=== PATIENT | female | born 1970 | race American Indian/Alaskan Native ===

== ENCOUNTER 2021-04-08 01:15 | Inpatient (IN) | payer SELFPAY ==
[2021-04-08] MEDS ORDERED: ACETAMINOPHEN 500 MG TAB PO ONE (03:08)
--- NOTE | 2021-04-08 04:02 | XRay Report ---
CHEST 2 VIEWS INDICATION / CLINICAL INFORMATION: sob and chest pain. FINDINGS: SUPPORT DEVICES: None. HEART / MEDIASTINUM: No significant abnormality. LUNGS / PLEURA: Severe bilateral airspace pneumonia, lower lobe predominant. No significant pleural e ffusion. Signer Name: Saturnino Owusu MD Signed: 04/08/2021 3:57 AM Workstation Name: [id number]
[2021-04-08] MEDS ORDERED: cefTRIAXone/NS 1 GM/50 ML 1 GM/50 ML BAG IV ONE (05:25)
[2021-04-08] MEDS ORDERED: dexAMETHasone 20 MG/5 ML VIAL IV ONE (05:26)
[2021-04-08] MEDS ORDERED: AZITHROMYCIN 250 MG TAB PO ONE (05:26)
--- NOTE | 2021-04-08 06:25 | Emergency Department Report ---
<DANELLE CHACON - Last Filed: 04/08/21 06:21> ED Fever HPI - General Chief Complaint: Fever Stated Complaint: VOMITING,FEVER,BODY PAIN X 1 WK Time Seen by Provider: 04/08/21 06:13 - History of Present Illness Initial Comments: 51-year-old -Tog[place]ese female who recently retired from the [employer] with a past medical history of rheumatoid arthritis on Humira and subsequently vaccinated also past medical history of CAD with STEMI and hypertension history and current evaluation for what is suspected lupus presents emergency department after contact with her Covid positive 10-year-old son reporting a 1 week history of progressive worsening chest pain, shortness of breath, fevers sensation and coryza and myalgia with a suspicion for the coronavirus. Reports no hemoptysis no hematemesis no no hematochezia symptoms appear to be worse with ambulation/exertion. Associated Symptoms: headache, shortness of breath, weakness ED Review of Systems Comment: All other systems reviewed and negative ED Past Medical Hx - Past Medical History Previous Medical History?: Yes Hx Hypertension: Yes Additional medical history: rheumatoid arthritis, osteoarthritis, scoliosis - Surgical History Past Surgical History?: Yes Additional Surgical History: c section x2 - Social History Smoking Status: Never Smoker Substance Use Type: None ED Physical Exam - General Limitations: No Limitations General appearance: alert, in distress (Mild) - Head Head exam: Present: atraumatic, normocephalic - Eye Eye exam: Present: normal appearance, PERRL, EOMI Pupils: Present: normal accommodation - ENT ENT exam: Present: normal exam, normal orophraynx, mucous membranes moist - Neck Neck exam: Present: normal inspection, full ROM - Respiratory Respiratory exam: Present: rhonchi, decreased breath sounds. Absent: respiratory distress - Cardiovascular Cardiovascular Exam: Present: regular rate, normal rhythm. Absent: systolic murmur, diastolic murmur, rubs, gallop - GI/Abdominal GI/Abdominal exam: Present: soft, normal bowel sounds - Extremities Exam Extremities exam: Present: normal inspection - Back Exam Back exam: Present: normal inspection - Neurological Exam Neurological exam: Present: alert, oriented X3, CN II-XII intact - Psychiatric Psychiatric exam: Present: normal affect, normal mood - Skin Skin exam: Present: warm, dry, intact, normal color. Absent: rash ED Course - Consultations Consultation #1: 04/08/21 06:23 Case was discussed with the hospitalist nurse practitioner about the need for admission due to her Covid 19 symptoms and bilateral pneumonia. Plan is to admit to the hospitalist she reports that she will pass case along to the incoming doctor Consultation #2: 04/08/21 06:25 Case was discussed with the attending Dr. Hathaway who also had [id number] with Ms. kim and agrees with need for admission. He examined the patient while at bedside. ED Medical Decision Making - Radiology Data Radiology results: report reviewed [facility] [address] [place] [address] XRay Report Signed Patient: YAJAIRA KIM MR#: [id number] : 1970 Acct:[id number] Age/Sex: 51 / F ADM Date: 04/08/21 Loc: ED Attending Dr: Ordering Physician: LEONARDA NORMAN Date of Service: 04/08/21 Procedure(s): XR chest routine 2V Accession Number(s): [id number] cc: LEONARDA NORMAN Fluoro Time In Minutes: CHEST 2 VIEWS INDICATION / CLINICAL INFORMATION: sob and chest pain. FINDINGS: SUPPORT DEVICES: None. HEART / MEDIASTINUM: No significant abnormality. LUNGS / PLEURA: Severe bilateral airspace pneumonia, lower lobe predominant. No significant pleural effusion. Signer Name: Saturnino Owusu MD Signed: 04/08/2021 3:57 AM Workstation Name: [id number] Transcribed By: BC Dictated By: Saturnino Owusu MD Electronically Authenticated By: Saturnino Owusu MD Signed Date/Time: 04/08/21356 DD/ 6 TD/TT: Print Cancel - Medical Decision Making 51-year-old female [facility] emergency department with shortness of breath chest pain ankle with exposure with a suspicion for having developed what appears to be the COVID-19 19 virus with complication of bilateral lower lobe pneumonia. She was treated emergency department with fluids antibiotics and steroids and she was ambulated with desaturations from all 100% down to 92 with labor mesfin thing and tachycardia. Due to her immunocompromising history and cope at home comorbidities it is in the best interest for admission for aggressive therapy and observation. She was evaluated also by the attending on duty whom agree with this plan this was discussed with the nurse practitioner for the admitting provider Dr. Rodriguez who reports she will pass it on to the incoming doctor ED Disposition Clinical Impression: Person under investigation for COVID-19, Shortness of breath Pneumonia of both lower lobes Qualifiers: Pneumonia type: due to unspecified organism Qualified Code(s): J18.9 - Pneumonia, unspecified organism Bilateral pneumonia Qualifiers: Pneumonia type: due to unspecified organism Lung location: unspecified part of lung Qualified Code(s): J18.9 - Pneumonia, unspecified organism Chest pain Qualifiers: Chest pain type: unspecified Qualified Code(s): R07.9 - Chest pain, unspecified Disposition: ADMITTED INPATIENT Is pt being admited?: Yes Does the pt Need Aspirin: No Condition: Critical <CONRADO HATHAWAY III - Last Filed: 04/08/21 21:52> ED Fever HPI - General PUI?: Yes Source: patient Exam Limitations: no limitations ED Review of Systems ROS: Stated complaint: VOMITING,FEVER,BODY PAIN X 1 WK Other details as noted in HPI ED Past Medical Hx - Past Medical History Previous Medical History?: Yes Hx Hypertension: Yes Hx Heart Attack/AMI: Yes - Surgical History Past Surgical History?: Yes - Family History Family history: no significant - Social History Smoking Status: Never Smoker Substance Use Type: None ED Course Vital Signs 04/08/21 04/08/21 04/08/21 03:00 03:01 03:17 Temperature 101.0 F H Pulse Rate 98 H Respiratory 20 18 Rate Blood Pressure 96/71 100/73 Blood Pressure 100/73 [Left] O2 Sat by Pulse 98 Oximetry - Reevaluation(s) Reevaluation #1: I reviewed the findings and management of this patient in real-time and I have personally seen and examined this patient and participated in the decision making for this patient with the midlevel. Patient is a 51-year-old female with a history of rheumatoid arthritis, hypertension and CAD and ME/NSTEMI. Patient presents emergency room with complaints of chest pain, shortness of breath, cough, fever and respiratory symptoms. Patient states she is not vaccinated against COVID-19. Patient states that she is currently on Humira which is a biologic and immunosuppressive for her rheumatoid arthritis. Patient ambulated with the nurse and the oxygen dropped down to 92%. Patient's oxygen saturation is concerning. Patient is presumed high risk due to being on immunosuppressive's with the Humira. Patient had a chest x-ray and it shows bilateral infiltrates and pneumonia. Patient will have labs done and the patient will prepare for admission. I discussed all results with patient. I discussed plan of care with patient. Patient agrees with plan of care and admission. Patient to be admitted to the hospitalist service. The midlevel will consult the hospitalist service for admission after labs are done and the work-up is complete. Patient will have a Covid panel. Patient was placed on oxygen. I examined the patient. Patient's lung sounds are diminished with rhonchi. Patient CV exam shows normal S1-S2, No murmurs noted. Patient's neurologic exam is intact and the patient's alert and oriented x4. 04/08/21 06:10 ED Medical Decision Making - Lab Data Result diagrams: 04/08/21 07:06 04/08/21 07:06 - Radiology Data Radiology results: report reviewed, image reviewed interpreted by me: Chest x-ray: Bilateral pneumonia, no pneumothorax, no foreign body, no osseous findings, - Differential Diagnosis PUI, Covid, chest pain, shortness of breath, fever, URI, pneumonia Critical care attestation.: If time is entered above; I have spent that time in minutes in the direct care of this critically ill patient, excluding procedure time. ED Disposition Is pt being admited?: Yes Does the pt Need Aspirin: No Time of Disposition: 06:10
[2021-04-08 07:42] LABS: Basophils % (Auto) 0.4 % (0.0-1.8); Hematocrit 36.9 % (30.3-42.9); Hemoglobin 11.8 gm/dl (10.1-14.3); Lymphocytes # (Auto) 0.7 K/mm3 (1.2-5.4); Lymphocytes % (Auto) 19.4 % (13.4-35.0); Mean Corpuscular HGB Conc 32 % (30-34); Mean Corpuscular Volume 81 fl (79-97); Monocytes # (Auto) 0.2 K/mm3 (0.0-0.8); Monocytes % (Auto) 6.6 % (0.0-7.3); Platelet Count 199 K/mm3 (140-440); Red Blood Count 4.54 M/mm3 (3.65-5.03); Red Cell Distribution Width 15.3 % (13.2-15.2)
--- NOTE | 2021-04-08 07:49 | History and Physical Report ---
History of Present Illness Date of examination: 04/08/21 Date of admission: 04/08/21 05:59 Chief complaint: Fever, worsening shortness of breath, chest pain and generalized body aches for the last 1 week History of present illness: 51-year-old female patient with significant past medical history of rheumatoid arthritis on Humira, hypertension , history of coronary artery disease/STEMI, undergoing evaluation for possible lupus presented to the emergency room with generalized body pains fever and worsening shortness of breath and chest pain of 1 week duration Patient gives history of COVID-19 exposures with her 10-year-old son who was positive On presentation patient is febrile with temperature of 101 F, initial chest x- ray findings consistent with bilateral pneumonia Patient also has mild leukopenia probably due to viral syndrome and mild hyponatremia Patient complains of vague chest pain Denies nausea vomiting or abdominal pain Denies headache dizziness, denies palpitation Past History Past Medical History: arthritis, hypertension, other (Rheumatoid arthritis, scoliosis) Past Surgical History: (X2) Social history: denies: smoking, alcohol abuse, prescription drug abuse Family history: no significant family history Medications and Allergies Allergies Allergy/AdvReac Type Severity Reaction Status Date / Time No Known Allergies Allergy Verified 04/08/21 03:05 Review of Systems Constitutional: fever, fatigue, weakness Ears, nose, mouth and throat: no nasal congestion, no nasal discharge Cardiovascular: no chest pain, no orthopnea, no palpitations Respiratory: cough, shortness of breath Gastrointestinal: no abdominal pain, no nausea, no vomiting Integumentary: no rash, no lesions Neurological: weakness, no seizures, no syncope Psychiatric: no anxiety, no depression Endocrine: no cold intolerance, no heat intolerance, no polydipsia, no polyuria Hematologic/Lymphatic: no easy bruising, no easy bleeding Allergic/Immunologic: no urticaria, no allergic rhinitis Exam - Constitutional Vitals: Temp Pulse Resp BP Pulse Ox 101.0 F H 98 H 18 100/73 98 04/08/21 03:00 04/08/21 03:00 04/08/21 03:17 04/08/21 03:00 04/08/21 03:00 General appearance: Present: mild distress, well-nourished, obese - EENT Eyes: Present: PERRL, EOM intact - Neck Neck: Present: supple, normal ROM - Respiratory Respiratory effort: normal Respiratory: bilateral: diminished, rhonchi, negative: rales, wheezing - Cardiovascular Rhythm: regular Heart Sounds: Present: S1 & S2 - Extremities Extremities: no ischemia, No edema - Abdominal General gastrointestinal: Present: soft, non-tender, non-distended, normal bowel sounds - Integumentary Integumentary: Present: clear, warm - Musculoskeletal Musculoskeletal: strength equal bilaterally, generalized weakness - Psychiatric Psychiatric: appropriate mood/affect, cooperative - Neurologic Neurologic: CNII-XII intact, moves all extremities Results - Labs CBC & Chem 7: 04/08/21 07:06 04/08/21 07:06 Labs: Abnormal lab results 04/08/21 Range/Units 07:06 WBC 3.5 L (4.5-11.0) K/mm3 MCH 26 L (28-32) pg RDW 15.3 H (13.2-15.2) % Lymph # (Auto) 0.7 L (1.2-5.4) K/mm3 Seg Neutrophils % 73.6 H (40.0-70.0) % Assessment and Plan - Patient Problems (1) Person under investigation for COVID-19 Current Visit: Yes Status: Acute Plan to address problem: High suspicion for COVID-19, as patient had exposure to cold contact Contact and droplet isolation, Morgan PCR test requested ID consult if needed Patient is not vaccinated (2) Bilateral pneumonia Current Visit: Yes Status: Acute Plan to address problem: Probably atypical viral pneumonia However we will start empiric antibiotics with Rocephin and Zithromax Cultures, oxygen titrate O2 sats more than 90%, supportive care (3) Obesity (BMI 30.0-34.9) Current Visit: Yes Status: Acute Plan to address problem: Patient needs weight reduction when medically stable Diet modification, exercise as tolerated and weight reduction when stable (4) Hypertension Current Visit: Yes Status: Acute Plan to address problem: Moderate control, continue antihypertensives As needed hydralazine (5) Leukocytopenia, unspecified Current Visit: Yes Status: Acute Plan to address problem: Acute viral syndrome, possible COVID-19 infection Follow morgan PCR test, closely monitor (6) Hyponatremia Current Visit: Yes Status: Acute Plan to address problem: Mild hyponatremia, normal saline, closely monitor electrolytes (7) Acute febrile illness Current Visit: Yes Status: Acute Plan to address problem: Acute febrile illness probably due to viral syndrome Possible COVID-19 pending test (8) Full code status Current Visit: Yes Status: Acute (9) DVT prophylaxis Current Visit: Yes Status: Acute Plan to address problem: Lovenox Closely monitor the patient and adjust management as needed Plan of care reviewed with the patient and her nurse
[2021-04-08 07:55] LABS: Blood Urea Nitrogen 9 mg/dL (7-17); Calcium 9.1 mg/dL (8.4-10.2); Hemolysis Index 8
[2021-04-08 07:56] LABS: BUN/Creatinine Ratio 13
[2021-04-08] MEDS ORDERED: SODIUM CHLORIDE 0.9% 1000 ML 1,000 ML IV SCH (08:30)
[2021-04-08] MEDS ORDERED: cefTRIAXone/NS 1 GM/50 ML 1 GM/50 ML BAG IV SCH (08:30)
[2021-04-08] MEDS ORDERED: ACETAMINOPHEN 325 MG TAB PO PRN (08:30)
[2021-04-08 08:50] LABS: Alanine Aminotransferase 10 units/L (7-56); Albumin 3.7 g/dL (3.9-5)
[2021-04-08 08:51] LABS: Bilirubin,Direct < 0.2 mg/dL (0-0.2)
[2021-04-08] MEDS: ZINC SULFATE 220 MG CAP PO SCH (10:30)
[2021-04-08] MEDS: PANTOPRAZOLE 40 MG TAB PO SCH (10:30)
[2021-04-08] MEDS: ASCORBIC ACID 500 MG TAB PO SCH (10:30)
[2021-04-09] MEDS: ASCORBIC ACID 500 MG TAB PO SCH ×3 (00:34→23:36)
[2021-04-09] MEDS: ZINC SULFATE 220 MG CAP PO SCH ×3 (00:34→23:36)
[2021-04-09] MEDS: ENOXAPARIN 40 MG/0.4 ML INJ SUB-Q SCH ×2 (00:41→23:36)
[2021-04-09 06:27] LABS: Basophils % (Auto) 0.2 % (0.0-1.8); Hematocrit 36.5 % (30.3-42.9); Hemoglobin 11.7 gm/dl (10.1-14.3); Lymphocytes % (Auto) 14.7 % (13.4-35.0); Mean Corpuscular HGB Conc 32 % (30-34); Mean Corpuscular Volume 81 fl (79-97); Monocytes # (Auto) 0.5 K/mm3 (0.0-0.8); Monocytes % (Auto) 7.2 % (0.0-7.3); Platelet Count 218 K/mm3 (140-440); Red Cell Distribution Width 15.2 % (13.2-15.2)
[2021-04-09 06:40] LABS: Alanine Aminotransferase 9 units/L (7-56); Albumin 3.5 g/dL (3.9-5); Blood Urea Nitrogen 11 mg/dL (7-17); Calcium 9.4 mg/dL (8.4-10.2); Hemolysis Index 4
[2021-04-09 06:56] LABS: BUN/Creatinine Ratio 16
[2021-04-09] MEDS: PANTOPRAZOLE 40 MG TAB PO SCH (07:54)
[2021-04-09] MEDS ORDERED: ONDANSETRON 4 MG/2 ML INJ ONE (08:08)
[2021-04-09] MEDS: cefTRIAXone/NS 2 GM/100 ML 2 GM/100 ML BAG IV SCH (08:14)
[2021-04-09] MEDS: AZITHROMYCIN/NS 500 MG/250 ML 500 MG/250 ML BAG IV SCH (08:15)
--- NOTE | 2021-04-09 12:11 | Progress Note ---
Assessment and Plan Assessment and plan: -- positive COVID-19 infection Current Visit: Yes Status: Acute Contact and droplet isolation Check inflammatory markers Oxygen evaluation, currently on room air No hypoxia , no need for steroids and remdesivir at this point ID consult if needed,Prone positioning -- Bilateral pneumonia Current Visit: Yes Status: Acute Probably atypical viral pneumonia However we will start empiric antibiotics with Rocephin and Zithromax Cultures, oxygen titrate O2 sats more than 90%, supportive care Check procalcitonin, if normal DC antibiotics --Obesity (BMI 30.0-34.9) Current Visit: Yes Status: Acute Patient needs weight reduction when medically stable Diet modification, exercise as tolerated and weight reduction when stable --Hypertension Current Visit: Yes Status: Acute Moderate control, continue antihypertensives As needed hydralazine --Leukocytopenia, unspecified Current Visit: Yes Status: Acute Acute viral syndrome, possible COVID-19 infection Follow ely PCR test, closely monitor --Hyponatremia Current Visit: Yes Status: Acute Mild hyponatremia, normal saline, closely monitor electrolytes --Acute febrile illness Current Visit: Yes Status: Acute Acute febrile illness probably due to viral syndrome Possible COVID-19 pending test --Full code status Current Visit: Yes Status: Acute --DVT prophylaxis Current Visit: Yes Status: Acute Lovenox Closely monitor the patient and adjust management as needed Plan of care reviewed with the patient and her nurse 04/09/2021; Patient has intermittent fevers No hypoxia, on room air O2 Pneumonia, on empiric antibiotics Procalcitonin requested, not reported ID consult if needed History Interval history: I have seen and examined the patient at the bedside this morning in ER awaiting room assignment Patient is not on any oxygen, saturating well on room air However patient has intermittent fevers No other complaints Vital signs noted Hospitalist Physical - Constitutional Vitals: Temp Pulse Resp BP Pulse Ox 101.0 F H 98 H 18 100/73 98 04/08/21 03:00 04/08/21 03:00 04/08/21 03:17 04/08/21 03:01 04/08/21 03:00 General appearance: Present: mild distress, well-nourished, obese - EENT Eyes: Present: PERRL, EOM intact - Neck Neck: Present: supple, normal ROM - Respiratory Respiratory effort: normal Respiratory: bilateral: diminished, negative: rales, rhonchi, wheezing - Cardiovascular Rhythm: regular Heart Sounds: Present: S1 & S2 - Extremities Extremities: no ischemia, No edema - Abdominal General gastrointestinal: soft, non-tender, non-distended, normal bowel sounds - Integumentary Integumentary: Present: clear, warm - Psychiatric Psychiatric: appropriate mood/affect, cooperative - Neurologic Neurologic: CNII-XII intact, moves all extremities Results - Labs CBC & Chem 7: 04/09/21 05:53 04/09/21 05:53 Labs: Laboratory Last Values WBC 7.1 K/mm3 (4.5-11.0) 04/09/21 05:53 RBC 4.50 M/mm3 (3.65-5.03) 04/09/21 05:53 Hgb 11.7 gm/dl (10.1-14.3) 04/09/21 05:53 Hct 36.5 % (30.3-42.9) 04/09/21 05:53 MCV 81 fl (79-97) 04/09/21 05:53 MCH 26 pg (28-32) L 04/09/21 05:53 MCHC 32 % (30-34) 04/09/21 05:53 RDW 15.2 % (13.2-15.2) 04/09/21 05:53 Plt Count 218 K/mm3 (140-440) 04/09/21 05:53 Lymph % (Auto) 14.7 % (13.4-35.0) 04/09/21 05:53 [place] % (Auto) 7.2 % (0.0-7.3) 04/09/21 05:53 Eos % (Auto) 0.0 % (0.0-4.3) 04/09/21 05:53 Baso % (Auto) 0.2 % (0.0-1.8) 04/09/21 05:53 Lymph # (Auto) 1.0 K/mm3 (1.2-5.4) L 04/09/21 05:53 [place] # (Auto) 0.5 K/mm3 (0.0-0.8) 04/09/21 05:53 Eos # (Auto) 0.0 K/mm3 (0.0-0.4) 04/09/21 05:53 Baso # (Auto) 0.0 K/mm3 (0.0-0.1) 04/09/21 05:53 Seg Neutrophils % 77.9 % (40.0-70.0) H 04/09/21 05:53 Seg Neutrophils # 5.6 K/mm3 (1.8-7.7) 04/09/21 05:53 D-Dimer 196.59 ng/mlDDU (0-234) 04/08/21 07:06 Sodium 138 mmol/L (137-145) 04/09/21 05:53 Potassium 4.3 mmol/L (3.6-5.0) 04/09/21 05:53 Chloride 101.0 mmol/L (98-107) 04/09/21 05:53 Carbon Dioxide 27 mmol/L (22-30) 04/09/21 05:53 Anion Gap 14 mmol/L 04/09/21 05:53 BUN 11 mg/dL (7-17) 04/09/21 05:53 Creatinine 0.7 mg/dL (0.6-1.2) 04/09/21 05:53 Estimated GFR > 60 ml/min 04/09/21 05:53 BUN/Creatinine Ratio 16 % 04/09/21 05:53 Glucose 115 mg/dL (65-100) H 04/09/21 05:53 Calcium 9.4 mg/dL (8.4-10.2) 04/09/21 05:53 Magnesium 2.20 mg/dL (1.7-2.3) 04/09/21 05:53 Ferritin 82.8 ng/mL (10.0-200.0) 04/08/21 07:06 Total Bilirubin 0.40 mg/dL (0.1-1.2) 04/09/21 05:53 Direct Bilirubin < 0.2 mg/dL (0-0.2) 04/08/21 07:06 Indirect Bilirubin 0.2 mg/dL 04/08/21 07:06 AST 19 units/L (5-40) 04/09/21 05:53 ALT 9 units/L (7-56) 04/09/21 05:53 Alkaline Phosphatase 61 units/L (35-129) 04/09/21 05:53 Lactate Dehydrogenase 293 units/L (91-180) H 04/08/21 07:06 C-Reactive Protein 5.00 mg/dL (0.00-1.30) H 04/08/21 07:06 Total Protein 7.2 g/dL (6.3-8.2) 04/09/21 05:53 Albumin 3.5 g/dL (3.9-5) L 04/09/21 05:53 Albumin/Globulin Ratio 0.9 % 04/09/21 05:53 Coronavirus (PCR) Positive (Negative) A 04/08/21 Unknown Active Medications - Current Medications Current Medications: Generic Name Dose Route Start Last Admin Trade Name Freq PRN Reason Stop Dose Admin Acetaminophen 650 mg 04/08/21 08:30 Acetaminophen 325 Mg Tab PO Q4H PRN Pain, Mild (1-3) Ascorbic Acid 500 mg 04/08/21 10:00 04/09/21 10:15 Ascorbic Acid 500 Mg Tab PO 500 mg BID KATH Administration Enoxaparin Sodium 40 mg 04/08/21 22:00 04/09/21 00:41 Enoxaparin 40 Mg/0.4 Ml Inj SUB-Q 40 mg QDAY@2200 KATH Administration Protocol Azithromycin 500 mg in 250 mls @ 250 mls/hr 04/09/21 08:00 04/09/21 08:15 Zithromax/Ns IV 04/12/21 08:59 250 mls/hr Q24H KATH Administration Ceftriaxone Sodium 2 gm in 100 mls @ 200 mls/hr 04/09/21 08:00 04/09/21 08:14 Rocephin/Ns 2 Gm/100 Ml IV 04/12/21 08:29 200 mls/hr Q24H KATH Administration Protocol Sodium Chloride 1,000 mls @ 75 mls/hr 04/08/21 08:30 04/09/21 00:29 Nacl 0.9% 1000 Ml IV 75 mls/hr DIRECT KATH Administration Pantoprazole Sodium 40 mg 04/08/21 09:00 04/09/21 07:54 Pantoprazole 40 Mg Tab PO 40 mg QDAC KATH Administration Zinc Sulfate 220 mg 04/08/21 10:00 04/09/21 10:15 Zinc Sulfate 220 Mg Cap PO 220 mg BID KATH Administration
[2021-04-10] MEDS: PANTOPRAZOLE 40 MG TAB PO SCH (09:19)
[2021-04-10] MEDS: cefTRIAXone/NS 2 GM/100 ML 2 GM/100 ML BAG IV SCH (09:19)
[2021-04-10] MEDS: AZITHROMYCIN/NS 500 MG/250 ML 500 MG/250 ML BAG IV SCH (09:20)
[2021-04-10] MEDS: ASCORBIC ACID 500 MG TAB PO SCH ×2 (10:13→21:20)
[2021-04-10] MEDS: ZINC SULFATE 220 MG CAP PO SCH ×2 (10:13→21:20)
--- NOTE | 2021-04-10 18:16 | Progress Note ---
Assessment and Plan Assessment and plan: -- positive COVID-19 infection Current Visit: Yes Status: Acute Contact and droplet isolation Check inflammatory markers currently on room air No hypoxia , no need for steroids and remdesivir at this point ID consult if needed,Prone positioning -- Bilateral pneumonia Current Visit: Yes Status: Acute Probably atypical viral pneumonia However we will start empiric antibiotics with Rocephin and Zithromax Cultures, oxygen titrate O2 sats more than 90%, supportive care Procalcitonin very high, will complete antibiotics for total 5 days --Obesity (BMI 30.0-34.9) Current Visit: Yes Status: Acute Patient needs weight reduction when medically stable Diet modification, exercise as tolerated and weight reduction when stable --Hypertension Current Visit: Yes Status: Acute Moderate control, continue antihypertensives As needed hydralazine --Leukocytopenia, unspecified Current Visit: Yes Status: Acute Acute viral syndrome, possible COVID-19 infection Follow ely PCR test, closely monitor --Hyponatremia Current Visit: Yes Status: Acute Mild hyponatremia, normal saline, closely monitor electrolytes --Acute febrile illness Current Visit: Yes Status: Acute Acute febrile illness probably due to viral syndrome Possible COVID-19 pending test --Full code status Current Visit: Yes Status: Acute --DVT prophylaxis Current Visit: Yes Status: Acute Lovenox Closely monitor the patient and adjust management as needed Plan of care reviewed with the patient and her nurse 04/09/2021; Patient has intermittent fevers No hypoxia, on room air O2 Pneumonia, on empiric antibiotics Procalcitonin requested, not reported ID consult if needed 04/10/2021; patient feels better Intermittent fevers, pneumonia community-acquired Procalcitonin very high, continue antibiotics for total 5 to 7 days Follow cultures Patient is not requiring any supplemental oxygen at this point Will check 6-minute walk and home O2 evaluation at discharge History Interval history: I seen and examined the patient at the bedside Patient's chart and medications reviewed Patient feels slightly better still has intermittent fevers in mild distress Vital signs noted Hospitalist Physical - Constitutional Vitals: Temp Pulse Resp BP Pulse Ox 101.0 F H 98 H 16 100/73 9 L 04/08/21 03:00 04/08/21 03:00 04/09/21 07:30 04/08/21 03:01 04/10/21 17:15 General appearance: Present: mild distress, well-nourished, obese - EENT Eyes: Present: PERRL, EOM intact - Neck Neck: Present: supple, normal ROM - Respiratory Respiratory effort: normal, labored Respiratory: bilateral: diminished, negative: rales, rhonchi, wheezing - Cardiovascular Rhythm: regular Heart Sounds: Present: S1 & S2 - Extremities Extremities: no ischemia, No edema - Abdominal General gastrointestinal: soft, non-tender, non-distended, normal bowel sounds - Integumentary Integumentary: Present: clear, warm - Psychiatric Psychiatric: appropriate mood/affect, cooperative - Neurologic Neurologic: CNII-XII intact, no focal deficits Results - Labs CBC & Chem 7: 04/09/21 05:53 04/09/21 05:53 Labs: Laboratory Last Values WBC 7.1 K/mm3 (4.5-11.0) 04/09/21 05:53 RBC 4.50 M/mm3 (3.65-5.03) 04/09/21 05:53 Hgb 11.7 gm/dl (10.1-14.3) 04/09/21 05:53 Hct 36.5 % (30.3-42.9) 04/09/21 05:53 MCV 81 fl (79-97) 04/09/21 05:53 MCH 26 pg (28-32) L 04/09/21 05:53 MCHC 32 % (30-34) 04/09/21 05:53 RDW 15.2 % (13.2-15.2) 04/09/21 05:53 Plt Count 218 K/mm3 (140-440) 04/09/21 05:53 Lymph % (Auto) 14.7 % (13.4-35.0) 04/09/21 05:53 Harper % (Auto) 7.2 % (0.0-7.3) 04/09/21 05:53 Eos % (Auto) 0.0 % (0.0-4.3) 04/09/21 05:53 Baso % (Auto) 0.2 % (0.0-1.8) 04/09/21 05:53 Lymph # (Auto) 1.0 K/mm3 (1.2-5.4) L 04/09/21 05:53 Harper # (Auto) 0.5 K/mm3 (0.0-0.8) 04/09/21 05:53 Eos # (Auto) 0.0 K/mm3 (0.0-0.4) 04/09/21 05:53 Baso # (Auto) 0.0 K/mm3 (0.0-0.1) 04/09/21 05:53 Seg Neutrophils % 77.9 % (40.0-70.0) H 04/09/21 05:53 Seg Neutrophils # 5.6 K/mm3 (1.8-7.7) 04/09/21 05:53 D-Dimer 196.59 ng/mlDDU (0-234) 04/08/21 07:06 Sodium 138 mmol/L (137-145) 04/09/21 05:53 Potassium 4.3 mmol/L (3.6-5.0) 04/09/21 05:53 Chloride 101.0 mmol/L (98-107) 04/09/21 05:53 Carbon Dioxide 27 mmol/L (22-30) 04/09/21 05:53 Anion Gap 14 mmol/L 04/09/21 05:53 BUN 11 mg/dL (7-17) 04/09/21 05:53 Creatinine 0.7 mg/dL (0.6-1.2) 04/09/21 05:53 Estimated GFR > 60 ml/min 04/09/21 05:53 BUN/Creatinine Ratio 16 % 04/09/21 05:53 Glucose 115 mg/dL (65-100) H 04/09/21 05:53 Calcium 9.4 mg/dL (8.4-10.2) 04/09/21 05:53 Magnesium 2.20 mg/dL (1.7-2.3) 04/09/21 05:53 Ferritin 82.8 ng/mL (10.0-200.0) 04/08/21 07:06 Total Bilirubin 0.40 mg/dL (0.1-1.2) 04/09/21 05:53 Direct Bilirubin < 0.2 mg/dL (0-0.2) 04/08/21 07:06 Indirect Bilirubin 0.2 mg/dL 04/08/21 07:06 AST 19 units/L (5-40) 04/09/21 05:53 ALT 9 units/L (7-56) 04/09/21 05:53 Alkaline Phosphatase 61 units/L (35-129) 04/09/21 05:53 Lactate Dehydrogenase 293 units/L (91-180) H 04/08/21 07:06 C-Reactive Protein 5.00 mg/dL (0.00-1.30) H 04/08/21 07:06 Total Protein 7.2 g/dL (6.3-8.2) 04/09/21 05:53 Albumin 3.5 g/dL (3.9-5) L 04/09/21 05:53 Albumin/Globulin Ratio 0.9 % 04/09/21 05:53 Procalcitonin 8.55 ng/mL (<0.15) 04/08/21 07:06 Coronavirus (PCR) Positive (Negative) A 04/08/21 Unknown Active Medications - Current Medications Current Medications: Generic Name Dose Route Start Last Admin Trade Name Freq PRN Reason Stop Dose Admin Acetaminophen 650 mg 04/08/21 08:30 Acetaminophen 325 Mg Tab PO Q4H PRN Pain, Mild (1-3) Ascorbic Acid 500 mg 04/08/21 10:00 04/10/21 10:13 Ascorbic Acid 500 Mg Tab PO 500 mg BID KATH Administration Enoxaparin Sodium 40 mg 04/08/21 22:00 04/09/21 23:36 Enoxaparin 40 Mg/0.4 Ml Inj SUB-Q 40 mg QDAY@2200 KATH Administration Protocol Azithromycin 500 mg in 250 mls @ 250 mls/hr 04/09/21 08:00 04/10/21 09:20 Zithromax/Ns IV 04/12/21 08:59 250 mls/hr Q24H KATH Administration Ceftriaxone Sodium 2 gm in 100 mls @ 200 mls/hr 04/09/21 08:00 04/10/21 09:19 Rocephin/Ns 2 Gm/100 Ml IV 04/12/21 08:29 200 mls/hr Q24H KATH Administration Protocol Sodium Chloride 1,000 mls @ 75 mls/hr 04/08/21 08:30 04/09/21 00:29 Nacl 0.9% 1000 Ml IV 75 mls/hr DIRECT KATH Administration Pantoprazole Sodium 40 mg 04/08/21 09:00 04/10/21 09:19 Pantoprazole 40 Mg Tab PO 40 mg QDAC KATH Administration Zinc Sulfate 220 mg 04/08/21 10:00 04/10/21 10:13 Zinc Sulfate 220 Mg Cap PO 220 mg BID KATH Administration
[2021-04-10] MEDS: ENOXAPARIN 40 MG/0.4 ML INJ SUB-Q SCH (21:20)
[2021-04-11] MEDS: cefTRIAXone/NS 2 GM/100 ML 2 GM/100 ML BAG IV SCH (07:18)
[2021-04-11] MEDS: AZITHROMYCIN/NS 500 MG/250 ML 500 MG/250 ML BAG IV SCH (07:18)
[2021-04-11] MEDS: PANTOPRAZOLE 40 MG TAB PO SCH (07:18)
[2021-04-11] MEDS: ASCORBIC ACID 500 MG TAB PO SCH (10:16)
[2021-04-11] MEDS: ZINC SULFATE 220 MG CAP PO SCH (10:16)
[2021-04-11] MEDS ORDERED: MAGNESIUM HYDROXIDE (MOM) ORAL LIQD UDC PO ONE (11:00)
--- NOTE | 2021-04-11 14:52 | Discharge Summary ---
Providers - Providers Date of Admission: 04/08/21 05:59 Date of discharge: 04/11/21 Attending physician: MYRNA VILLA 04/10/21 17:33 Consult to Dietitian/Nutrition [CONS] Routine Physician Instructions: Reason For Exam: Reason for Consult: Poor oral intake Primary care physician: [facility] Hospitalization Condition: Critical Exam - Constitutional Vitals: Temp Pulse Resp BP Pulse Ox 98.8 F 73 20 125/85 96 04/10/21 23:34 04/10/21 23:34 04/10/21 23:34 04/10/21 23:34 04/11/21 00:01 Plan Activity: no restrictions Diet: regular Additional Instructions: Advised to follow COVID-19 precautions and protocols instructed to you by the discharge nurse. If you have worsening symptoms contact MD or go to the nearest emergency room. Advised to follow-up primary care physician in 5 to 7 days. Your oxygen saturation resting room air and ambulatory room air are more than 96%, no indication for home oxygen Prescriptions: Pantoprazole [Protonix TAB] 40 mg PO QDAC #14 tablet Ascorbic Acid [Vitamin C] 500 mg PO BID #30 tablet Zinc Sulfate 220 mg PO BID #30 capsule
[2021-04-11 18:18] VITALS: BP 117/80
== END 2021-04-11 18:53 | disposition home or self-care (01) | DRG 177 ==
LOC: ED 01:15 → 3A 05:59
PROVIDERS: ADMIT Hospitalist; ATTEND Internal Medicine
DX: U07.1 COVID-19 (principal); J12.82 Pneumonia due to coronavirus disease 2019; E87.1 Hypo-osmolality and hyponatremia; I25.10 Atherosclerotic heart disease of native coronary artery without angina pectoris; I25.2 Old myocardial infarction; M06.9 Rheumatoid arthritis, unspecified; I10 Essential (primary) hypertension
CPT/HCPCS: 36415; 71046; 80048; 80053; 80076; 82728; 83615; 83735; 84145; 85025; 85379; 86140; G0378; J0456; J0696; J1100; J1650; J2405; J7030; U0003